=== PATIENT | female | born 1940 | race Caucasian/White ===

== ENCOUNTER 2016-06-09 08:30 | Emergency (ER) | payer OTHER, MEDICARE ==
--- NOTE | 2016-06-09 09:46 | ED NURSING NOTES ---
Clinical Report - Nurses [facility] [address] [place] [address] 06/09/2016 8:33 Patient: BRANDI POLLARD TRIAGE Acuity: LEVEL 4. Chief Complaint: SKIN PROBLEM and BOIL and INSECT BITE Alert. No acute distress. SEPSIS SCREEN: Sepsis Screen. Negative (no infection suspected/documented). --08:53 Kaitlynn De Los Santos R.N. 08:48 06/09/16. BP: 184/92. HR: 76. RR: 16. O2 saturation: 99% on room air. Temp: 98.5 F (oral). Pain level now: 0/10. --08:53 Kaitlynn De Los Santos R.N. Weight: 75.7 kg stated. Height/Length: 64 inches Per Patient. BMI: 28.7. --08:53 Kaitlynn De Los Santos R.N. Medications Hyoscyamine Sulfate ER Oral 0.125 mg, PRN. Levothyroxine Sodium Oral 112 mcg, 6 days a week. Nitrostat Sublingual (Tablet Sublingual 0.4 mg). Ranitidine HCl Oral 150 mg, 2x a day. Travatan Z Ophthalmic. Vitamin D-3 Oral. ZyrTEC Allergy Oral. --08:51 Kaitlynn De Los Santos R.N. Medication/allergy information source: the patient. --08:53 Kaitlynn De Los Santos R.N. Allergies Amitriptyline. Dicyclomine. (light headed, dizzy) Fagel. Macrobid. (shakey) Omeprazole. Oxycodone. Valium. Vicodin. Wellbutrin. Xanax. (headaches, IBS worsened) Z pack.(rash) --08:51 Kaitlynn De Los Santos R.N. History Arrived by private vehicle. Historian: patient. Unaccompanied. Primary physician (Herman). Reported as located on the right thigh and left thigh. Onset. (4 days ago). Not itchy, burning or painful. 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 PAST MEDICAL HX: The patient has had a hysterectomy. SOCIAL HX: Never smoker. No alcohol use or drug use. NUTRITIONAL RISK ASSESSMENT: The nutritional risk assessment revealed no deficiencies. FUNCTIONAL ASSESSMENT: Functional assessment: no impairments noted. LEARNING NEEDS ASSESSMENT: The learning needs assessment revealed no barriers. FALL RISK ASSESSMENT: Fall risk assessment completed. Risk factors identified include patient age greater than 65 years. SKIN INTEGRITY ASSESSMENT: Skin integrity risk assessment completed. No skin integrity risk identified. --08:53 Kaitlynn De Los Santos R.N. PROBLEMS: Gastritis. Gastroesophageal Reflux Disease. Chest Pain. Hemorrhoids. Diverticulitis. Irritable Bowel Syndrome. Acid reflux. Thyroid Disease. --08:52 Kaitlynn De Los Santos R.N. ADDITIONAL SURGERIES: Gallbladder Surgery. Hysterectomy. Lasik. Melanoma. Tonsillectomy. Venous stripping-legs. --08:52 Kaitlynn De Los Santos R.N. Assessment GENERAL / NEURO / PSYCH: Alert. Oriented X 4. Appears in no acute distress. [place] Coma Scale: 15- eyes open spontaneously (4); best verbal response- oriented x 4 (5); best motor response- obeys commands (6). Patient appears calm and cooperative. RESPIRATORY: Respirations not labored. CVS: Capillary refill less than 2 seconds. GI / : Abdomen nontender. SKIN: Mucous membranes are pink. Skin is warm and dry. --08:53 Kaitlynn De Los Santos R.N. Interventions ID band on patient. To treatment room. --08:53 Kaitlynn De Los Santos R.N. PHYSICAL ASSESSMENT 08:54 06/09/16. Ambulatory to room. GENERAL / NEURO / PSYCH: Alert. The patient does not appear to be in acute distress. Oriented X 4. HEENT: Pupils equal, round and reactive to light. Mucous membranes are pink. RESPIRATORY: Respirations not labored. CVS: Capillary refill less than 2 seconds. GI / : Abdomen nontender. SKIN: Skin is intact, warm and dry. No skin rash. --08:54 Kaitlynn De Los Santos R.N. NURSING PROGRESS NOTES 08:54 06/09/16. Patient gowned. Two patient identifiers checked. Call light placed in reach. Side rails up x 1. Bed placed in lowest position. Brakes of bed on. Patient ready for evaluation- chart flagged and ED physician notified. --08:54 Kaitlynn De Los Santos R.N. DISPOSITION / DISCHARGE Departure time: 09:50 Jun 09 2016. Condition at departure: improved and stable. No learning barriers present. Discharge instructions provided and reviewed with the patient. Reviewed medication(s) side effects, precautions and dosing information. Prescription(s) given to the patient. Patient verbalized understanding. Written instructions provided in Romanian. The patient was discharged by the physician. She was discharged home. She left the Emergency Department ambulatory and via private vehicle. Patient driving. --13:11 Kaitlynn De Los Santos R.N. Locked/Released at 06/09/2016 13:12 by Kaitlynn De Los Santos R.N.
--- NOTE | 2016-06-09 09:46 | ED NURSING NOTES ---
Clinical Report - Nurses [facility] [address] [place] [address] 06/09/2016 8:33 Patient: BRANDI POLLARD TRIAGE Acuity: LEVEL 4. Chief Complaint: SKIN PROBLEM and BOIL and INSECT BITE Alert. No acute distress. SEPSIS SCREEN: Sepsis Screen. Negative (no infection suspected/documented). --08:53 Kaitlynn De Los Santos R.N. 08:48 06/09/16. BP: 184/92. HR: 76. RR: 16. O2 saturation: 99% on room air. Temp: 98.5 F (oral). Pain level now: 0/10. --08:53 Kaitlynn De Los Santos R.N. Weight: 75.7 kg stated. Height/Length: 64 inches Per Patient. BMI: 28.7. --08:53 Kaitlynn De Los Santos R.N. Medications Hyoscyamine Sulfate ER Oral 0.125 mg, PRN. Levothyroxine Sodium Oral 112 mcg, 6 days a week. Nitrostat Sublingual (Tablet Sublingual 0.4 mg). Ranitidine HCl Oral 150 mg, 2x a day. Travatan Z Ophthalmic. Vitamin D-3 Oral. ZyrTEC Allergy Oral. --08:51 Kaitlynn De Los Santos R.N. Medication/allergy information source: the patient. --08:53 Kaitlynn De Los Santos R.N. Allergies Amitriptyline. Dicyclomine. (light headed, dizzy) Fagel. Macrobid. (shakey) Omeprazole. Oxycodone. Valium. Vicodin. Wellbutrin. Xanax. (headaches, IBS worsened) Z pack.(rash) --08:51 Kaitlynn De Los Santos R.N. History Arrived by private vehicle. Historian: patient. Unaccompanied. Primary physician (Herman). Reported as located on the right thigh and left thigh. Onset. (4 days ago). Not itchy, burning or painful. 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 PAST MEDICAL HX: The patient has had a hysterectomy. SOCIAL HX: Never smoker. No alcohol use or drug use. NUTRITIONAL RISK ASSESSMENT: The nutritional risk assessment revealed no deficiencies. FUNCTIONAL ASSESSMENT: Functional assessment: no impairments noted. LEARNING NEEDS ASSESSMENT: The learning needs assessment revealed no barriers. FALL RISK ASSESSMENT: Fall risk assessment completed. Risk factors identified include patient age greater than 65 years. SKIN INTEGRITY ASSESSMENT: Skin integrity risk assessment completed. No skin integrity risk identified. --08:53 Kaitlynn De Los Santos R.N. PROBLEMS: Gastritis. Gastroesophageal Reflux Disease. Chest Pain. Hemorrhoids. Diverticulitis. Irritable Bowel Syndrome. Acid reflux. Thyroid Disease. --08:52 Kaitlynn De Los Santos R.N. ADDITIONAL SURGERIES: Gallbladder Surgery. Hysterectomy. Lasik. Melanoma. Tonsillectomy. Venous stripping-legs. --08:52 Kaitlynn De Los Santos R.N. Assessment GENERAL / NEURO / PSYCH: Alert. Oriented X 4. Appears in no acute distress. [place] Coma Scale: 15- eyes open spontaneously (4); best verbal response- oriented x 4 (5); best motor response- obeys commands (6). Patient appears calm and cooperative. RESPIRATORY: Respirations not labored. CVS: Capillary refill less than 2 seconds. GI / : Abdomen nontender. SKIN: Mucous membranes are pink. Skin is warm and dry. --08:53 Kaitlynn De Los Santos R.N. Interventions ID band on patient. To treatment room. --08:53 Kaitlynn De Los Santos R.N. PHYSICAL ASSESSMENT 08:54 06/09/16. Ambulatory to room. GENERAL / NEURO / PSYCH: Alert. The patient does not appear to be in acute distress. Oriented X 4. HEENT: Pupils equal, round and reactive to light. Mucous membranes are pink. RESPIRATORY: Respirations not labored. CVS: Capillary refill less than 2 seconds. GI / : Abdomen nontender. SKIN: Skin is intact, warm and dry. No skin rash. --08:54 Kaitlynn De Los Santos R.N. NURSING PROGRESS NOTES 08:54 06/09/16. Patient gowned. Two patient identifiers checked. Call light placed in reach. Side rails up x 1. Bed placed in lowest position. Brakes of bed on. Patient ready for evaluation- chart flagged and ED physician notified. --08:54 Kaitlynn De Los Santos R.N. DISPOSITION / DISCHARGE Departure time: 09:50 Jun 09 2016. Condition at departure: improved and stable. No learning barriers present. Discharge instructions provided and reviewed with the patient. Reviewed medication(s) side effects, precautions and dosing information. Prescription(s) given to the patient. Patient verbalized understanding. Written instructions provided in Armenian. The patient was discharged by the physician. She was discharged home. She left the Emergency Department ambulatory and via private vehicle. Patient driving. --13:11 Kaitlynn De Los Santos R.N. Locked/Released at 06/09/2016 13:12 by Kaitlynn De Los Santos R.N.
--- NOTE | 2016-06-09 09:46 | ED CLINICAL REPORT ---
Clinical Report - Physicians/Mid Levels [facility] [address] [place] [address] 06/09/2016 8:33 Patient: BRANDI POLLARD [facility] [id number] Time Seen: 09:33 Jun 09 2016. Arrived- By private vehicle. Historian- patient. CPT: ER phys charges level 3 (#[id number]). HISTORY OF PRESENT ILLNESS Chief Complaint: SKIN RASH. 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 and is still present (worse. Streaking on the left thigh.). Not itchy or painful. It has been located on the right lower extremity and left lower extremity. No cause has been identified. Similar symptoms previously: None. Recent medical care: Not recently seen/assessed. REVIEW OF SYSTEMS No fever, chills, sore throat, cough or difficulty breathing. No hoarseness, lump in throat, enlarged lymph nodes, eye irritation or chest pain. No abdominal pain, nausea, diarrhea or vomiting. All systems otherwise negative, except as recorded above. PAST HISTORY Gastritis. Gastroesophageal Reflux Disease. Chest Pain. Hemorrhoids. Diverticulitis. Irritable Bowel Syndrome. Acid reflux. Thyroid Disease. --08:52 Kaitlynn De Los Santos R.N. ADDITIONAL SURGERIES: Gallbladder Surgery. Hysterectomy. Lasik. Melanoma.: Large excision left thigh and torso. Lymphedema left leg. Tonsillectomy. Venous stripping-legs. Medications: Hyoscyamine Sulfate ER Oral 0.125 mg, PRN. Levothyroxine Sodium Oral 112 mcg, 6 days a week. Nitrostat Sublingual (Tablet Sublingual 0.4 mg). Ranitidine HCl Oral 150 mg, 2x a day. Travatan Z Ophthalmic. Vitamin D-3 Oral. ZyrTEC Allergy Oral. Allergies: Amitriptyline. Dicyclomine. (light headed, dizzy) Fagel. Macrobid. (shakey) Omeprazole. Oxycodone. Valium. Vicodin. Wellbutrin. Xanax. (headaches, IBS worsened) Z pack.(rash). SOCIAL HISTORY Never smoker. No alcohol use or drug use. ADDITIONAL NOTES The nursing notes have been reviewed. PHYSICAL EXAM Vital Signs: 06/09/2016 08:48 BP: 184/92. HR: 76. RR: 16. O2 saturation: 99%. Temp: 98.5 F. Pain level now: 0/10. Appearance: Alert. No acute distress. Anxious. Eyes: Conjunctivae and eyelids normal. ENT: Pharynx normal. CVS: Normal heart rate and rhythm. Respiratory: No respiratory distress. Abdomen: Nontender. Skin: Skin warm. Normal skin color. Rash present on the right thigh (small 1 cm erythematous patch with scaling.) and left lower extremity (2 cm erythematous patch with 4 inch strip of lymphangitis.). (Question of an early cellulitis.). Extremities: Extremities nontender. Neuro: Oriented X 3. PROGRESS AND PROCEDURES Patient/family counseled. Disposition: Discharged. Condition: stable. CLINICAL IMPRESSION Bug bites to the thighs with early infection. INSTRUCTIONS (Use steroid cream that you have.). Warnings: Further evaluation is necessary. GENERAL WARNINGS: Return or contact your physician immediately if your condition worsens or changes unexpectedly, if not improving as expected, or if other problems arise. Your Current Medications: CONTINUE TAKING THE FOLLOWING MEDICATIONS: Hyoscyamine Sulfate ER Oral : 0.125 mg PRN. Levothyroxine Sodium Oral : 112 mcg 6 days a week. Nitrostat Sublingual : Tablet Sublingual 0.4 mg. Ranitidine HCl Oral : 150 mg 2x a day. Travatan Z Ophthalmic. Vitamin D-3 Oral. ZyrTEC Allergy Oral. Prescription Medications: Bactrim DS 800 mg / 160 mg: Take 1 tablet orally every 12 hours for 7 days. Dispense fourteen (14). No refills. Substitution is permissible. Follow-up: Follow up with your doctor in four days if not better. Understanding of the discharge instructions verbalized by patient. (Electronically signed by Krishna Simeon MD 06/11/2016 11:17)
--- NOTE | 2016-06-09 09:46 | ED CLINICAL REPORT ---
Clinical Report - Physicians/Mid Levels [facility] [address] [place] [address] 06/09/2016 8:33 [id number] Time Seen: 09:33 Jun 09 2016. Arrived- By private vehicle. Historian- patient. CPT: ER phys charges level 3 (#[id number]). HISTORY OF PRESENT ILLNESS Chief Complaint: SKIN RASH. 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 and is still present (worse. Streaking on the left thigh.). Not itchy or painful. It has been located on the right lower extremity and left lower extremity. No cause has been identified. Similar symptoms previously: None. Recent medical care: Not recently seen/assessed. REVIEW OF SYSTEMS No fever, chills, sore throat, cough or difficulty breathing. No hoarseness, lump in throat, enlarged lymph nodes, eye irritation or chest pain. No abdominal pain, nausea, diarrhea or vomiting. All systems otherwise negative, except as recorded above. PAST HISTORY Gastritis. Gastroesophageal Reflux Disease. Chest Pain. Hemorrhoids. Diverticulitis. Irritable Bowel Syndrome. Acid reflux. Thyroid Disease. --08:52 Kaitlynn De Los Santos R.N. ADDITIONAL SURGERIES: Gallbladder Surgery. Hysterectomy. Lasik. Melanoma.: Large excision left thigh and torso. Lymphedema left leg. Tonsillectomy. Venous stripping-legs. Medications: Hyoscyamine Sulfate ER Oral 0.125 mg, PRN. Levothyroxine Sodium Oral 112 mcg, 6 days a week. Nitrostat Sublingual (Tablet Sublingual 0.4 mg). Ranitidine HCl Oral 150 mg, 2x a day. Travatan Z Ophthalmic. Vitamin D-3 Oral. ZyrTEC Allergy Oral. Allergies: Amitriptyline. Dicyclomine. (light headed, dizzy) Fagel. Macrobid. (shakey) Omeprazole. Oxycodone. Valium. Vicodin. Wellbutrin. Xanax. (headaches, IBS worsened) Z pack.(rash). SOCIAL HISTORY Never smoker. No alcohol use or drug use. ADDITIONAL NOTES The nursing notes have been reviewed. PHYSICAL EXAM Vital Signs: 06/09/2016 08:48 BP: 184/92. HR: 76. RR: 16. O2 saturation: 99%. Temp: 98.5 F. Pain level now: 0/10. Appearance: Alert. No acute distress. Anxious. Eyes: Conjunctivae and eyelids normal. ENT: Pharynx normal. CVS: Normal heart rate and rhythm. Respiratory: No respiratory distress. Abdomen: Nontender. Skin: Skin warm. Normal skin color. Rash present on the right thigh (small 1 cm erythematous patch with scaling.) and left lower extremity (2 cm erythematous patch with 4 inch strip of lymphangitis.). (Question of an early cellulitis.). Extremities: Extremities nontender. Neuro: Oriented X 3. PROGRESS AND PROCEDURES Patient/family counseled. Disposition: Discharged. Condition: stable. CLINICAL IMPRESSION Bug bites to the thighs with early infection. INSTRUCTIONS (Use steroid cream that you have.). Warnings: Further evaluation is necessary. GENERAL WARNINGS: Return or contact your physician immediately if your condition worsens or changes unexpectedly, if not improving as expected, or if other problems arise. Your Current Medications: CONTINUE TAKING THE FOLLOWING MEDICATIONS: Hyoscyamine Sulfate ER Oral : 0.125 mg PRN. Levothyroxine Sodium Oral : 112 mcg 6 days a week. Nitrostat Sublingual : Tablet Sublingual 0.4 mg. Ranitidine HCl Oral : 150 mg 2x a day. Travatan Z Ophthalmic. Vitamin D-3 Oral. ZyrTEC Allergy Oral. Prescription Medications: Bactrim DS 800 mg / 160 mg: Take 1 tablet orally every 12 hours for 7 days. Dispense fourteen (14). No refills. Substitution is permissible. Follow-up: Follow up with your doctor in four days if not better. Understanding of the discharge instructions verbalized by patient. (Electronically signed by Krishna Simeon MD 06/11/2016 11:17)
--- NOTE | 2016-06-11 11:17 | ED MED RECONCILIATION SUMMARY ---
Patient: BRANDI POLLARD Medication Reconciliation Report [facility] VisitID: [id number] [place] [address] 75y, F Registration Date/Time: 06/09/2016 Weight: 75.7 kg Height/Length: 64 in. BMI: 28.7 ALLERGIES: Amitriptyline, Dicyclomine, Fagel, Macrobid, Omeprazole, Oxycodone, Valium, Vicodin, Wellbutrin, Xanax, Z pack The patient's Home Medications are listed below: CONTINUE TAKING THE FOLLOWING MEDICATIONS: Hyoscyamine Sulfate ER Oral 0.125 mg, PRN Levothyroxine Sodium Oral 112 mcg, 6 days a week Nitrostat Sublingual (0.4 mg) Ranitidine HCl Oral 150 mg, 2x a day Travatan Z Ophthalmic Vitamin D-3 Oral ZyrTEC Allergy Oral The source(s) of the original Home Medication information: patient The following Medications were given to the patient in the Emergency Department: None. The following Medications were prescribed to the patient: Bactrim DS 800 mg / 160 mg: Take 1 tablet orally every 12 hours for 7 days. Dispense fourteen (14). No refills. Substitution is permissible. -- Krishna Simeon MD
--- NOTE | 2016-06-11 11:17 | ED DISCHARGE INSTRUCTIONS ---
Patient: BRANDI POLLARD General Instructions [facility] VisitID: [id number] [place] [address] 75y, F Registration Date/Time: 06/09/2016 Bug bites to the thighs with early infection. INSTRUCTIONS (Use steroid cream that you have.). Warnings: Further evaluation is necessary. GENERAL WARNINGS: Return or contact your physician immediately if your condition worsens or changes unexpectedly, if not improving as expected, or if other problems arise. Your Current Medications: CONTINUE TAKING THE FOLLOWING MEDICATIONS: Hyoscyamine Sulfate ER Oral : 0.125 mg PRN. Levothyroxine Sodium Oral : 112 mcg 6 days a week. Nitrostat Sublingual : Tablet Sublingual 0.4 mg. Ranitidine HCl Oral : 150 mg 2x a day. Travatan Z Ophthalmic. Vitamin D-3 Oral. ZyrTEC Allergy Oral. Prescription Medications: Bactrim DS 800 mg / 160 mg: Take 1 tablet orally every 12 hours for 7 days. Dispense fourteen (14). No refills. Substitution is permissible. Follow-up: Follow up with your doctor in four days if not better. Understanding of the discharge instructions verbalized by patient. (Electronically signed by Krishna Simeon MD 06/11/2016 11:17)
--- NOTE | 2016-06-11 11:17 | ED DISCHARGE INSTRUCTIONS ---
Patient: BRANDI POLLARD General Instructions [facility] VisitID: [id number] [place] [address] 75y, F Registration Date/Time: 06/09/2016 Bug bites to the thighs with early infection. INSTRUCTIONS (Use steroid cream that you have.). Warnings: Further evaluation is necessary. GENERAL WARNINGS: Return or contact your physician immediately if your condition worsens or changes unexpectedly, if not improving as expected, or if other problems arise. Your Current Medications: CONTINUE TAKING THE FOLLOWING MEDICATIONS: Hyoscyamine Sulfate ER Oral : 0.125 mg PRN. Levothyroxine Sodium Oral : 112 mcg 6 days a week. Nitrostat Sublingual : Tablet Sublingual 0.4 mg. Ranitidine HCl Oral : 150 mg 2x a day. Travatan Z Ophthalmic. Vitamin D-3 Oral. ZyrTEC Allergy Oral. Prescription Medications: Bactrim DS 800 mg / 160 mg: Take 1 tablet orally every 12 hours for 7 days. Dispense fourteen (14). No refills. Substitution is permissible. Follow-up: Follow up with your doctor in four days if not better. Understanding of the discharge instructions verbalized by patient. (Electronically signed by Krishna Simeon MD 06/11/2016 11:17)
--- NOTE | 2016-06-11 11:17 | ED MED RECONCILIATION SUMMARY ---
Patient: BRANDI POLLARD Medication Reconciliation Report [facility] VisitID: [id number] [place] [address] 75y, F Registration Date/Time: 06/09/2016 Weight: 75.7 kg Height/Length: 64 in. BMI: 28.7 ALLERGIES: Amitriptyline, Dicyclomine, Fagel, Macrobid, Omeprazole, Oxycodone, Valium, Vicodin, Wellbutrin, Xanax, Z pack The patient's Home Medications are listed below: CONTINUE TAKING THE FOLLOWING MEDICATIONS: Hyoscyamine Sulfate ER Oral 0.125 mg, PRN Levothyroxine Sodium Oral 112 mcg, 6 days a week Nitrostat Sublingual (0.4 mg) Ranitidine HCl Oral 150 mg, 2x a day Travatan Z Ophthalmic Vitamin D-3 Oral ZyrTEC Allergy Oral The source(s) of the original Home Medication information: patient The following Medications were given to the patient in the Emergency Department: None. The following Medications were prescribed to the patient: Bactrim DS 800 mg / 160 mg: Take 1 tablet orally every 12 hours for 7 days. Dispense fourteen (14). No refills. Substitution is permissible. -- Krishna Simeon MD
--- NOTE | 2016-06-11 11:17 | ED MAR SUMMARY ---
..... Medication Administration Record [facility] [address] [place] [address] Patient: BRANDI POLLARD Visit ID: [id number] 75y, F Weight: 75.7 kg Height/Length: 64 in BMI: 28.7 ALLERGIES: Amitriptyline, Dicyclomine, Fagel, Macrobid, Omeprazole, Oxycodone, Valium, Vicodin, Wellbutrin, Xanax, Z pack
--- NOTE | 2016-06-11 11:17 | ED MAR SUMMARY ---
..... Medication Administration Record [facility] [address] [place] [address] Patient: BRANDI POLLARD Visit ID: [id number] 75y, F Weight: 75.7 kg Height/Length: 64 in BMI: 28.7 ALLERGIES: Amitriptyline, Dicyclomine, Fagel, Macrobid, Omeprazole, Oxycodone, Valium, Vicodin, Wellbutrin, Xanax, Z pack
== END 2016-06-09 09:50 | disposition home or self-care (01) ==
LOC: ED SRH 08:30
DX: S70.362A Insect bite (nonvenomous), left thigh, initial encounter (principal); S70.361A Insect bite (nonvenomous), right thigh, initial encounter; K21.9 Gastro-esophageal reflux disease without esophagitis; W57.XXXA Bitten or stung by nonvenomous insect and other nonvenomous arthropods, initial encounter; Y93.9 Activity, unspecified; Y92.9 Unspecified place or not applicable; Z88.5 Allergy status to narcotic agent; Y99.9 Unspecified external cause status; Z79.899 Other long term (current) drug therapy; Z88.8 Allergy status to other drugs, medicaments and biological substances